=== PATIENT | male | born 1950 ===

== ENCOUNTER 2019-09-16 20:33 | Emergency (ER) | payer MEDICARE, OTHER ==
[2019-09-16] MEDS ORDERED: LIDOCAINE VISCOUS 2% 15 ML UDC MM STA (20:59)
[2019-09-16] MEDS ORDERED: MAG HYDROX/AL HYDROX/SIMETH 30 ML UDC PO STA (21:00)
--- NOTE | 2019-09-16 21:06 | ED Physician Documentation ---
PD HPI ABD PAIN - Stated complaint Stated Complaint: N/V/F/CHILLS/SOA - Chief complaint Chief Complaint: General - History obtained from History obtained from: Patient - History of Present Illness Timing - onset: How many days ago (2) Timing - duration: Days (2) Timing - details: Gradual onset, Still present Quality: Sharp, Pain Location: Epigastric Radiation: Upper back Improved by: Meds (tums mild improvement) Associated symptoms: Nausea, Vomiting, Constipation. No: Diarrhea Similar symptoms before: Diagnosis (ulcer) Recently seen: Not recently seen - Additional information Additional information: 69-year-old previously well male developed acute epigastric abdominal pain radiating to his back at 4:30 in the morning 3 days ago. He has had persistence of this pain without resolution and he has not been able to eat. He has had fluids to drink.He has come to the emergency department when symptoms have not resolved. He is very uncomfortable with pain radiating to his back. Review of Systems Constitutional: reports: Myalgias, Fatigue. denies: Fever Eyes: denies: Decreased vision Ears: denies: Ear pain Nose: denies: Rhinorrhea / runny nose, Congestion Throat: denies: Sore throat Cardiac: denies: Chest pain / pressure, Palpitations, Pedal edema, Calf pain Respiratory: denies: Dyspnea, Cough GI: reports: Abdominal Pain, Nausea, Constipation. denies: Vomiting, Diarrhea : denies: Dysuria, Frequency Skin: denies: Rash Musculoskeletal: reports: Back pain. denies: Neck pain, Extremity pain Neurologic: denies: Generalized weakness, Focal weakness, Numbness PD PAST MEDICAL HISTORY - Past Medical History Cardiovascular: High cholesterol GI: Ulcers - Present Medications Home Medications: Ambulatory Orders Medication Instructions Recorded Confirmed Aspirin [Adult Low Dose Aspirin EC] 81 mg PO 09/17/19 Simvastatin 09/17/19 - Allergies Allergies/Adverse Reactions: Allergies Allergy/AdvReac Type Severity Reaction Status Date / Time No Known Drug Allergies Allergy Verified 09/16/19 20:44 PD ED PE NORMAL - Vitals Vital signs reviewed: Yes (hypertensive ) - General General: Alert and oriented X 3, Well developed/nourished, Other (appears to be in pain with senior sales manager tone and flattened affect. ) - HEENT HEENT: Atraumatic, PERRL, EOMI - Neck Neck: Supple, no meningeal sign, No bony TTP - Cardiac Cardiac: RRR, No murmur - Respiratory Respiratory: No respiratory distress, Clear bilaterally - Abdomen Abdomen: Soft, Other (epigsatric and RUQ tenderness with epigsatric tenderness worse than RUQ) - Back Back: No CVA TTP, No spinal TTP - Derm Derm: Normal color, Warm and dry, No rash - Extremities Extremities: No deformity, No edema, No calf tenderness / cord - Neuro Neuro: Alert and oriented X 3, digital sales executive 2-12 intact, No motor deficit, No sensory deficit, Normal speech Eye Opening: Spontaneous Motor: Obeys Commands Verbal: Oriented GCS Score: 15 - Psych Psych: Normal mood, Normal affect Results - Vitals Vitals: Vital Signs - 24 hr 09/16/19 09/16/19 09/16/19 20:37 21:26 22:26 Temperature 36.5 C Heart Rate 82 68 86 Respiratory 19 18 18 Rate Blood Pressure 156/69 H 180/84 H 172/73 H O2 Saturation 95 95 98 09/16/19 09/17/19 09/17/19 23:17 01:22 01:28 Temperature Heart Rate 92 77 83 Respiratory 18 18 19 Rate Blood Pressure 169/81 H 174/79 H O2 Saturation 94 96 97 09/17/19 03:15 Temperature Heart Rate 99 Respiratory 18 Rate Blood Pressure 149/82 H O2 Saturation 96 Oxygen O2 Source Room air - EKG (time done) 2051 Rate: Rate (enter#) (75) Rhythm: LAE Ischemia: Q waves Compare to prior EKG: Old EKG unavailable Computer interpretation: Agree with computer - Labs Labs: Laboratory Tests 09/16/19 09/16/19 09/16/19 21:03 21:03 21:03 WBC 12.9 H RBC 4.22 L Hgb 13.6 L Hct 41.6 L MCV 98.6 H MCH 32.2 H MCHC 32.7 RDW 14.3 Plt Count 151 MPV 10.5 Neut # (Auto) 10.1 H Lymph # (Auto) 2.2 Josephine # (Auto) 0.3 Eos # (Auto) 0.1 Baso # (Auto) 0.1 Absolute Nucleated RBC 0.00 Nucleated RBC % 0.0 Sodium 138 Potassium 3.7 Chloride 100 L Carbon Dioxide 26 Anion Gap 12.0 BUN 30 H Creatinine 1.7 H Estimated GFR (MDRD) 40 L Glucose 156 H Calcium 9.0 Total Bilirubin 5.1 H AST 52 H ALT 63 H Alkaline Phosphatase 98 Troponin I High Sens 15.4 Total Protein 7.1 Albumin 3.7 Globulin 3.4 Albumin/Globulin Ratio 1.1 Lipase 576 H Urine Color Urine Clarity Urine pH Ur Specific Addison Urine Protein Urine Glucose (UA) Urine Ketones Urine Occult Blood Urine Nitrite Urine Bilirubin Urine Urobilinogen Ur Leukocyte Esterase Ur Microscopic Review Urine Culture Comments 09/16/19 23:00 WBC RBC Hgb Hct MCV MCH MCHC RDW Plt Count MPV Neut # (Auto) Lymph # (Auto) Josephine # (Auto) Eos # (Auto) Baso # (Auto) Absolute Nucleated RBC Nucleated RBC % Sodium Potassium Chloride Carbon Dioxide Anion Gap BUN Creatinine Estimated GFR (MDRD) Glucose Calcium Total Bilirubin AST ALT Alkaline Phosphatase Troponin I High Sens Total Protein Albumin Globulin Albumin/Globulin Ratio Lipase Urine Color YELLOW Urine Clarity CLEAR Urine pH 6.5 Ur Specific Addison 1.010 Urine Protein TRACE Urine Glucose (UA) 100 H Urine Ketones NEGATIVE Urine Occult Blood TRACE-INTA Urine Nitrite NEGATIVE Urine Bilirubin SMALL H Urine Urobilinogen 1 (NORMAL) Ur Leukocyte Esterase NEGATIVE Ur Microscopic Review NOT INDICATED Urine Culture Comments NOT INDICATED - Rads (name of study) CT ab/pel w Radiology: Prelim report reviewed (Impression: Common bile duct dilation and choledocholithiasis. There is also cholelithiasis and findings suspicious for mild cholecystitis.), EMP read indepedently, See rad report Procedures - Bedside sono Bedside sono by EMP: These bedside ultrasound the gallbladder is imaged there gallbladder is distended there is no pericholecystic fluid and no thickening of the gallbladder wall there are questionable stones in the fundus the gallbladder is sonographically nontender. - IVC sono (time) 2119 Bedside IVC sono: IVC measures (cm) (0.87), Dehydration (est 2 liter deficit) PD MEDICAL DECISION MAKING - ED course Complexity details: reviewed results, re-evaluated patient, considered differential, d/w patient ED course: 69-year-old male with epigastric pain presents to the emergency department with pain radiating to his back of 3 days duration. On initial presentation I considered ulcer as a possible etiology and the patient did not respond to a GI cocktail. Subsequently a CT scan showed dilation of the common bile duct, gallstones and evidence of possible cholecystitis. On my evaluation of the gallbladder at the bedside it was sonographically nontender I did not see perich olecystic fluid or thickened wall. The patient's laboratory work is consistent with acute biliary obstruction his imaging is consistent with this as well and a hospital with capability of ERCP was sought. [facility] does not have ERCP capable this weekend and Dr. Yusuf at [facility] in [place] is consulted in the case and recommends admission to the hospitalist. Dr. Martinez (hospitalist at [facility]) is consulted in the case and he will accept patient in transfer. Patient was treated in the emergency department initially with a banana bag IV for hydration (he denies alcohol history). He was administered the GI cocktail without relief and subsequently administered toradal with some improvement but he eventually required Dilaudid 1 mg with improvement in his pain. He required a second milligram and he was eventually administered cefepime as well. He received a second liter of fluid in the form of saline. Departure - Departure Disposition: 66 [facility] DC/[facility] Clinical Impression: Choledocholithiasis with acute cholecystitis with obstruction Condition: Stable
[2019-09-16 21:15] LABS: BASOPHILS # (AUTO) 0.1 10^3/uL (0.0-0.1); BASOPHILS % (AUTO) 0.4 %; EOSINOPHILS # (AUTO) 0.1 10^3/uL (0.0-0.7); EOSINOPHILS % (AUTO) 0.5 %; HGB - HEMOGLOBIN 13.6 g/dL (14.0-18.0); LYMPHOCYTES # (AUTO) 2.2 10^3/uL (1.5-3.5); MEAN CORPUSCULAR HEMOGLOBIN 32.2 pg (27.0-31.0); MEAN CORPUSCULAR HGB CONC 32.7 g/dL (32.0-36.0); MEAN CORPUSCULAR VOLUME 98.6 fL (80.0-94.0); MEAN PLATELET VOLUME 10.5 fL (7.4-11.4); MONOCYTES # (AUTO) 0.3 10^3/uL (0.0-1.0); MONOCYTES % (AUTO) 2.4 %; NEUTROPHILS # (AUTO) 10.1 10^3/uL (1.5-6.6); NEUTROPHILS % (AUTO) 78.5 %; PLT - PLATELET COUNT 151 10^3/uL (130-450); RED BLOOD COUNT 4.22 10^6/uL (4.70-6.10); RED CELL DISTRIBUTION WIDTH 14.3 % (12.0-15.0); WHITE BLOOD COUNT 12.9 x10^3/uL (4.8-10.8)
[2019-09-16] MEDS ORDERED: FOLIC ACID INJ 1 MG, THIAMINE INJ 100 MG, MAGNESIUM SULFATE 2 GM, MULTIVITAMIN 10 ML in... IV STA ×5 (21:25)
[2019-09-16] MEDS ORDERED: HYDROmorphone 1 MG/ML CARPUJECT IVP STA (21:26)
[2019-09-16] MEDS ORDERED: ONDANSETRON 4 MG/2 ML VIAL IVP STA (21:26)
[2019-09-16] MEDS ORDERED: THIAMINE 100 MG/1 ML 2 ML MDV ONE (21:31)
[2019-09-16 21:40] LABS: ALBUMIN 3.7 g/dL (3.2-5.5); ALBUMIN/GLOBULIN RATIO 1.1 (1.0-2.2); BILIRUBIN,TOTAL 5.1 mg/dL (0.2-1.0); CREATININE 1.7 mg/dL (0.6-1.2); TOTAL PROTEIN 7.1 g/dL (6.7-8.2)
[2019-09-16] MEDS ORDERED: IOVERSOL 320 100 ML VIAL IVP ONE ×2 (21:45→22:25)
--- NOTE | 2019-09-16 22:53 | CT Report ---
Reason: epigastric pain Procedure Date: 09/16/2019 Accession Number: [id number] / [id number] Procedure: CT - Abdomen/Pelvis W CPT Code: Final Report FULL RESULT: EXAM: CT ABDOMEN AND PELVIS EXAM DATE: 09/16/2019 10:22 PM. CLINICAL HISTORY: Epigastric pain. COMPARISONS: None. TECHNIQUE: Routine helical CT imaging was performed through the abdomen and pelvis. IV contrast: OPTI 320 90ML. Enteric contrast: No. Reconstructions: Coronal and sagittal. In accordance with CT protocol optimization, one or more of the following dose reduction techniques were utilized for this exam: automated exposure control, adjustment of mA and/or KV based on patient size, or use of iterative reconstructive technique. FINDINGS: ABDOMEN: Lung Bases: Small right pleural effusion. Right lower lung atelectasis. Liver: Unremarkable. Spleen: Unremarkable. Pancreas: Unremarkable. Gallbladder/Bile Ducts: Gallbladder is moderately distended with layering gallstones. Mild pericholecystic inflammatory change. Common bile duct dilatation to 2 cm. There is choledocholithiasis in the distal common bile duct with at least one stone measuring 8 mm (series 5 image 31). Adrenal Glands: Unremarkable. Kidneys: No mass, calculi, or hydronephrosis. 2 cm right renal cyst. Peritoneum/Mesentery/Bowel: No free fluid, free air, or collection. No intestinal obstruction or inflammation. Appendix not identified. No pericecal inflammatory changes. Lymph nodes: No mesenteric, periportal, or retroperitoneal lymphadenopathy. Vasculature: Ectasia of the infrarenal abdominal aorta measuring 2.7 cm. Portal vein is patent. Hepatic veins are patent. PELVIS: The bladder is unremarkable for the degree of distention. Enlarged heterogeneous prostate is present. No pelvic lymphadenopathy. Bones: No suspicious osseous lesions. IMPRESSION: Common bile duct dilatation and choledocholithiasis. There is also cholelithiasis and findings suspicious for mild cholecystitis. [facility]
[2019-09-16 23:33] LABS: GLUCOSE, URINE (UA) 100 mg/dL (NEGATIVE); KETONES,URINE (UA) NEGATIVE (NEGATIVE); LEUKOCYTE ESTERASE, URINE NEGATIVE (NEGATIVE); NITRITE,URINE NEGATIVE (NEGATIVE); OCCULT BLOOD,URINE TRACE-INTA (NEGATIVE); PH,URINE 6.5 PH (5.0-7.5); PROTEIN,URINE TRACE mg/dL (NEGATIVE); UROBILINOGEN,URINE 1 (NORMAL) E.U./dL (NORMAL)
[2019-09-16 23:35] LABS: CLARITY,URINE CLEAR (CLEAR)
[2019-09-16 23:38] LABS: BILIRUBIN,URINE SMALL (NEGATIVE); ICTOTEST,URINE POSITIVE
[2019-09-17] MEDS ORDERED: HYDROmorphone 1 MG/ML CARPUJECT IVP STA ×2 (01:15→05:20)
[2019-09-17] MEDS ORDERED: CEFEPIME 1 GM in SODIUM CHLORIDE 0.9% MINIBAG 100 ML IV STA (04:38)
[2019-09-17] MEDS ORDERED: SODIUM CHLORIDE 0.9% 1,000 ML IV ONE (04:38)
[2019-09-17 05:54] VITALS: BP 139/77
== END 2019-09-17 06:00 | disposition short-term general hospital (02) ==
LOC: ED 20:33
DX: K80.43 Calculus of bile duct with acute cholecystitis with obstruction (principal)
CPT/HCPCS: 36415; 74177; 80053; 81003; 83690; 84484; 85025; 93005; 96365; 96367; 96375; 96376; 99284; 99285; A9270; J1170; J3411; Q9967; 81001; 87086